=== PATIENT | female | born 1990 | race Caucasian/White ===

== ENCOUNTER 2018-11-24 22:16 | Inpatient (IN) | payer OTHER ==
[~2018-11-24] VITALS: Ht 162.6 cm; Wt 91.6 kg
[2018-11-24] MEDS ORDERED: FAMOTIDINE(*) 20MG/50ML PREMIX 50 ML IVPB PRN (22:19)
[2018-11-24] MEDS ORDERED: ceFAZolin(*) 2GM/D5W 50ML 50 ML IVPB PRN (22:19)
[2018-11-24] MEDS ORDERED: OXYTOCIN 30 UNIT/D5LR 500 ML 500 ML IV PRN (22:19)
[2018-11-24] MEDS ORDERED: METOCLOPRAMIDE 10 MG/2 ML SDV IVP PRN (22:20)
[2018-11-24] MEDS ORDERED: LIDOCAINE 1% LOCAL 300 MG/30ML INJ PRN (22:20)
[2018-11-24] MEDS ORDERED: LIDOCAINE/SOD BICARB 8.4% SYR SC PRN (22:20)
[2018-11-24] MEDS ORDERED: PENICILLIN G 5 MILLUN/100 ML 100 ML IVPB ONE (22:20)
[2018-11-24] MEDS ORDERED: fentaNYL CITR 100 MCG/2 ML AMP IVP PRN (22:20)
[2018-11-24] MEDS ORDERED: TERBUTALINE SULF 1 MG/ML VIAL SUBQ PRN (23:25)
[2018-11-24] MEDS ORDERED: MISOPROSTOL 25 MCG CAP PO ONE (23:25)
[2018-11-24] MEDS: LR(*) 1000 ML BAG 1,000 ML IV SCH (23:45)
[2018-11-24 23:54] LABS: PLATELET COUNT, AUTOMATED 135 K/uL (150-450)
[2018-11-25] MEDS ORDERED: PENICILLIN G 2.5 MILLUN/100 ML 100 ML IVPB SCH (03:00)
[2018-11-25] MEDS: LR(*) 1000 ML BAG 1,000 ML IV SCH ×2 (03:19→08:45)
[2018-11-25] MEDS ORDERED: BUPIVACAINE 0.25% MPF INJ EPI PRN (03:45)
[2018-11-25] MEDS ORDERED: LIDOCAINE/PF 2% 200MG/10ML AMP 200 MG/10 ML AMPUL EPI PRN (03:45)
[2018-11-25] MEDS ORDERED: LIDO/EPI 2% MPF 1:200,000 20ML EPI PRN (03:45)
[2018-11-25] MEDS ORDERED: FENTANYL/ROPIVACAINE 100 ML BAG EPI PRN (03:45)
[2018-11-25] MEDS ORDERED: fentaNYL CITR 100 MCG/2 ML AMP IT PRN (03:45)
[2018-11-25] MEDS ORDERED: ONDANSETRON 4 MG/2 ML VIAL IVP PRN (03:45)
[2018-11-25] MEDS ORDERED: NALOXONE HCL 0.4 MG/ML VIAL IV PRN (03:45)
[2018-11-25] MEDS ORDERED: BUPIVACAINE 0.5% INJ 30ML VIAL EPI PRN (03:45)
[2018-11-25 03:50] VITALS: BP 126/67; Ht 162.6 cm; Wt 91.6 kg
[2018-11-25] MEDS ORDERED: OXYTOCIN 30 UNIT/D5LR 500 ML 500 ML IV PRN (04:00)
[2018-11-25] MEDS ORDERED: ePHEDrine 25 MG/5 ML DISP.SYR IVP ONE ×2 (04:02→06:25)
[2018-11-25] MEDS: PENICILLIN G 2.5 MILLUN/100 ML 100 ML IVPB SCH ×2 (04:12→07:44)
[2018-11-25] MEDS ORDERED: EPIDURAL KEYS XX PRN (04:45)
--- NOTE | 2018-11-25 05:22 | Anesthesia OB Pre-Anes Eval ---
History of Present Illness Anesthesia Start Date: Nov 25, 2018 Anesthesia Start Time: 04:12 OB Anesthesia Diagnosis: spontaneous labor EDC: Dec 06, 2018 : 1 Para: 0 Pain Ratin Result Diagram: 11/24/18 5715 Height (Inches): 64.00 Weight (Pounds): 202 Past Medical History Medical History: alcohol use/abuse (occasional drinker. not during ), other (anxiety) Surgical History: other (wisdom teeth) Previous Anesthesia: other Hx Anesthesia Reactions: No Hx Family Anesthesia Reaction: No Allergies: Coded Allergies: No Known Drug Allergies (Unverified , 11/24/18) Anesthesia OB ROS Neurological: No migraines/headaches, No seizures, No neuropathy, No other ENT: Denies Tooth caps, Denies Loose teeth, Denies Chipped teeth, Denies Dentures, Denies Bridges, Denies Retainers, Denies Veneers, Denies Implants, Denies Tongue ring, Denies Other Pulmonary: No asthma, No smoker (pks/day/yrs), No other Airway Class: ll Cardiovascular ROS: No edema, No arrhythmia, No other GI ROS: clear liquids, ice chips Last Solids Date: Nov 24, 2018 Last Solids Time: 18:00 ROS: No Herpes, No STD(s), No Liver Disease, No Renal Disease, No Other Endocrine ROS: No diabetes, No gestational diabetes, No thyroid disorder, No other Musculoskeletal ROS: No low back pain, No low back injury, No scoliosis, No other ASA Classification: 2 Assessment and Plan Anesthesia Plan: LEB Assessment No contraindications for anesthesia/epidural GERALDINE MCDONOUGH CRNA Nov 25, 2018 05:22
--- NOTE | 2018-11-25 05:25 | Procedure Note ---
Anesthetic Placement Note Anesthesia Plan: LEB Permit for Anesthesia Signed: Yes Anesthesia Technique: Patient Sitting Anesthesia Prep: Chlorhexidine Interspace: L 3-4 Local Anesthetic: 1% Lidocaine, 25 Gauge Needle Amount Local - cc's: 2 Anesthesia Needle: 17g Touhy/Schliff Anesthesia Attempts: 1 Loss of Resistance: Normal Saline Epidural Needle Placement: No CSF, No Blood, No Parasthesia Cerebral Spinal Fluid: No Catheter Insertion (cm): 11 Catheter Type: Box - Spring Wound Epidural Dressing: Tegaderm, Tape Anesthesia Tray: Lot Number ([id number]), Expiration Date (05/26/2020) Anesthesia Medications: Epidural Test Dose: 1.5 Lido/Epi (1:200,000), Dose - mL (4), Time (0450), Negative Epidural Infusion: 0.2% Ropivicaine, With Fentanyl 2mcg/ml, Start Time: (0503) Epidural Pump Setting: Bolus Dose - mL (4), Lockout - Minutes (20), Maintenance Rate - mL/hr (8), Maximum per Hour - mL (8) Complications: None GERALDINE MCDONOUGH CRNA Nov 25, 2018 05:25
[2018-11-25] MEDS ORDERED: ePHEDrine 25 MG/5 ML DISP.SYR IVP PRN (06:50)
--- NOTE | 2018-11-25 09:23 | History & Physical ---
History of Present Illness Age of Patient: 28 : 1 Para or TPAL: 0 EDC per LMP: Dec 06, 2018 Estimated Gestational Age: 38.3 Chief Complaint Labor History of Present Illness Eliza presents with SROM of unknown duration and regular painful contractions. has been uncomplicated. She is healthy with no medical issues. Past Medical, Surgical, Family and Obstetric Histories reviewed. Please see ACOG chart. History Allergies: Coded Allergies: No Known Drug Allergies (Unverified , 11/24/18) Review of Systems All Systems Reviewed/Normal: Yes, Except as Noted Exam General Exam Vital Signs Vital Signs Date Time Temp Pulse Resp B/P (MAP) Pulse Ox O2 Delivery O2 Flow Rate FiO2 11/25/18 03:50 98.6 93 18 126/67 (86) 94 Room Air General Apperance: Alert/Awake/No Acute Distress Neuro: No Gross deficits Eyes: Normal Extraocular Movement & Vison Cardiovascular: Regular Rate and Rhythm Respiratory: No Respiratory Distress Abdomen: Soft, Non-Tender, Non-Distended, Gravid - Non-Tender Integumentary: Skin Intact without Lesions or Rash Psychological: Alert & Oriented X3, Appropriate Mood & Affect Cervical Dialation: 10 Cervical Effacement (%): 100 Cervical Consistency: Soft Cervical Position: Anterior Fetus Heart Tone Variabilty: Moderate FHT Accelerations: 15X15 FHT Category: I Medical Decision Making Data Points Result Diagram: 11/24/18 4349 VTE Prophylasis: Adult Deep Vein Thrombosis/Pulmonary: No Pharmacological Contraindicati: Pt at Low Risk for VTE Mechanical Contraindications: Pt at Low Risk for VTE Assessment and Plan BIOLOGY LECTURER Plan: Routine Labor Care Problems: (1) 38 weeks gestation of Assessment & Plan: Expecting soon. SULTANA COREA MD Nov 25, 2018 09:23
[2018-11-25] MEDS ORDERED: ACETAMINOPHEN 325 MG TAB PO PRN (10:30)
[2018-11-25] MEDS ORDERED: HYDROCORTISONE 2.5% CR 30GM TB PR PRN (10:30)
[2018-11-25] MEDS ORDERED: APAP/HYDROCODONE 325/5 TAB PO PRN (10:30)
[2018-11-25] MEDS ORDERED: MAGNESIUM HYDROXIDE* 30ML UDCP PO PRN (10:30)
[2018-11-25] MEDS ORDERED: LANOLIN OINT 7 GM TUBE TP PRN (10:30)
[2018-11-25] MEDS ORDERED: BENZOCAINE 20% 60 ML BTL TP PRN (10:30)
[2018-11-25] MEDS ORDERED: GLYCERIN/WITCH HAZEL LEAF 1 PK TP PRN (10:30)
--- NOTE | 2018-11-25 10:47 | OB Delivery Note ---
Delivery Note Vaginal Delivery Type: Spont. Vaginal Delivery Delivery Date: Nov 25, 2018 Delivery Time: 10:07 Estimated Gestational Age(wks): 38.3 Delivery Anesthesia: Epidural Sex: Female Infant Weight (gms): 3246 Apgars: 1 Minute (8), 5 Minute (9) Repair Needed: Episiotomy-Midline, 2nd Degree Estimated Blood Loss: 300 Delivery Complications: Nuchal Cord (x1) Notes: Presented in active labor and with SROM. She was 2 cm on admission and slowly changed to 3 cm by 0210. Epidural placed at 0342. She persisted at 3 cm till after 0530 when went to 9cm. Completely dilated at 0800 and labored down. Eff ective second stage labor but variable decelerations noted with contractions and so second degree episiotomy performed. Delivery over second degree laceration without extension. Placenta delivered spontaneous and intact. Repair with 2-0 chromic without complication. Real Estate Site Analyst in Attendence: No Copies to: SULTANA COREA MD ; SULTANA COREA MD Nov 25, 2018 10:47
[2018-11-25] MEDS: IBUPROFEN 800 MG TAB PO SCH ×2 (11:51→20:33)
--- NOTE | 2018-11-25 12:23 | Anesthesia Progress Note ---
Assessment and Plan Anesthesia Plan: MARIA ANTONIA Anesthesia Stop Day: Nov 25, 2018 Anesthesia Stop Time: 10:30 Epidural Catheter Removal: Removed Catheter Intact, Yes, Removed by: (Vonnie CARLTON) Removal Date: Nov 25, 2018 JU LORENZANA CRNA Nov 25, 2018 12:23
[2018-11-25 12:49] VITALS: BP 123/80
[2018-11-25 13:25] VITALS: BP 108/58
[2018-11-25] MEDS ORDERED: PREN1TAB44 PO (13:47)
--- NOTE | 2018-11-25 14:31 | DELIVERY NOTE ---
DELIVERY DATE: November 25, 2018 DELIVERY TIME: 1007 SURGEON: Alber Hopkins MD ANESTHESIA: Epidural. PREDELIVERY DIAGNOSIS A 38-week intrauterine . POSTDELIVERY DIAGNOSIS A 38-week intrauterine . PROCEDURES PERFORMED 1. Normal spontaneous vaginal delivery. 2. Second-degree midline episiotomy. ESTIMATED BLOOD LOSS 300 mL COMPLICATIONS None. FINDINGS Female infant, cephalic, left occiput anterior position, Apgars 8 and 9. Placenta spontaneous and intact. Second-degree midline episiotomy without extension. PROCEDURE Patient was admitted to Labor and Delivery with active labor and spontaneously ruptured membranes at approximately 2200 the same night of her admission. She was 2 cm on admission and was having regular painful contractions, slowly changed to 3 cm by 2 a.m., epidural placed at 3:42 a.m., and after 5:30 a.m., she went to 9 cm. By 0800, she was completely dilated and allowed to labor down. She had an effective second stage of labor, bringing the to a presentation, but variable deep decelerations were noted with each contraction, and so a second-degree midline episiotomy was performed to expedite delivery with delivery over a second-degree laceration without extension in the left occiput anterior position. There was a nuchal cord times one which was easily reduced. Shoulders delivered spontaneously, and the remainder of the followed. Mouth and nose were bulb suctioned. was placed on the maternal abdomen for attention by the resuscitation team. Cord was clamped and cut. The placenta delivered spontaneously. The uterus was massaged firm. The midline episiotomy was repaired with 2-0 chromic in the usual fashion for a second-degree obstetrical repair. This was performed without complication with an excellent result. She was cleaned up and returned to bed in stable condition. [facility]
[2018-11-25 16:28] VITALS: BP 118/71
[2018-11-25 20:30] VITALS: BP 123/78
[2018-11-25] MEDS: DOCUSATE CALCIUM 240 MG CAP PO SCH (20:33)
[2018-11-25 23:30] VITALS: BP 116/67
[2018-11-26 03:30] VITALS: BP 107/78
[2018-11-26] MEDS: IBUPROFEN 800 MG TAB PO SCH ×2 (03:36→11:29)
[2018-11-26] MEDS: DOCUSATE CALCIUM 240 MG CAP PO SCH (09:00)
--- NOTE | 2018-11-26 10:46 | OB/GYN Progress Note ---
OB Subjective Progress Notes Subjective Doing well. Pain well controlled and normal lochia. Pain in episiotomy site but tolerable. Voiding well. GI: NEG Nausea : Voiding Well Pain: Mild OB Objective Physical Exam Vital Signs Date Time Temp Pulse Resp B/P (MAP) Pulse Ox O2 Delivery O2 Flow Rate FiO2 11/26/18 03:30 97.0 81 16 107/78 (88) 94 Room Air Intake and Output 11/26/18 07:00 Intake Total 120 ml Output Total 1475 ml Balance -1355 ml Intake Oral 120 ml Output Urine Total 1475 ml # Voids 1 General Appearance: Alert/Awake/No Acute Distress Neurological: No Gross deficits Eyes: Normal Extraocular Movement & Vison Cardiovascular: Normal Rhythm & Peripheral Pulses, Regular Rate and Rhythm Respiratory: No Respiratory Distress, Clear to Auscultation Abdomen: Soft, Non-Tender, Non-Distended, Fundus Firm, Non-Tender Integumentary: Skin Intact without Lesions or Rash Psychological: Alert & Oriented X3, Appropriate Mood & Affect Result Diagram: 11/26/18 0602 Assessment and Plan SOUND PRINTER Plan: Routine Post- Care, Discharge Home Today Problems: (1) 38 weeks gestation of (2) care and examination immediately after delivery Assessment & Plan: Home today. F/U at 6 weeks. Reviewed discharge instructions and precautions. Call with problems. SULTANA COREA MD Nov 26, 2018 10:46
[2018-11-26] MEDS ORDERED: IBUP800T37 PO (10:49)
[2018-11-26] MEDS ORDERED: LOR5/325 PO (10:49)
--- NOTE | 2018-11-26 10:51 | OB/GYN Discharge Summary ---
Discharge Summary Reason for Hosp/Final Diag: (1) 38 weeks gestation of (2) care and examination immediately after delivery Hospital Course & Plan: Home today. F/U at 6 weeks. Reviewed discharge instructions and precautions. Call with problems. Lates Vital Signs Vital Signs Date Time Temp Pulse Resp B/P (MAP) Pulse Ox O2 Delivery O2 Flow Rate FiO2 11/26/18 03:30 97.0 81 16 107/78 (88) 94 Room Air Weight (Pounds): 202 Result Diagram: 11/26/18 0602 Condition: Improved Discharge: Home, Self Assisted Meds Active Scripts Hydrocodone Bit/Acetaminophen (HYDROCODON-ACETAMINOPHEN 5-325) 1 Each Tablet, 1- 2 EACH PO Q4H PRN for PAIN, #10 TAB 0 Refills Prov:SULTANA HOPKINS MD 11/26/18 Reported Medications Vit No.124/Iron/FA ( Vitamin Tablet) 1 Each Tablet, 1 TAB PO DAILY 11/25/18 Follow up Referrals: LAG SCREWER - In 6 Weeks @ [facility] with SULTANA HOPKINS MD Follow up with: Dr. Hopkins [phone] Follow up in: 6 wks PP or PO Discharge Diet: As Tolerates Discharge Activity: As Tolerates, No Heavy Lifting x 6 wks, No Heavy Lifting > 10lb, Pelvic Rest Special Instructions: Copies to: SULTANA HOPKINS MD ; SULTANA HOPKINS MD Nov 26, 2018 10:51
--- NOTE | 2018-11-26 14:33 | Anesthesia Post Eval Note ---
Anesthesia Post Eval Note Vital Signs 11/26/18 03:30 Temp 97.0 Pulse 81 Resp 16 B/P (MAP) 107/78 (88) Pulse Ox 94 O2 Delivery Room Air Pt able to participate in Eval: Yes Cardiovascular Status: Satisfactory Respiratory Status: Satisfactory Pain Managment: Satisfactory PO Nausea/Vomiting: Satisfactory Temperature Management: Satisfactory Mental Status: Satisfactory, Alert, Oriented X3 Post-Op Hydration Status: Satisfactory, Tolerating PO Well, Voiding w/o Difficulty Anesthesia Type: JU PETTY CRNA Nov 26, 2018 14:33
[2018-11-27] MEDS ORDERED: INFLUENZA VIRUS VAC 0.5ML SYR IM ONLY ONE (09:00)
[2018-11-27] MEDS ORDERED: MEASLES,MUMP,RUBELLA VAC 0.5ML SUBQ ONE (09:00)
[2018-11-27] MEDS ORDERED: DIPHTH/TETANUS/ACEL. PERTUSSIS IM ONLY ONE (09:00)
== END 2018-11-26 12:15 | disposition home or self-care (01) | DRG 807 ==
LOC: OB 22:16
PROVIDERS: ADMIT Obstetrics & Gynecology; ATTEND Obstetrics & Gynecology
PROC: 10E0XZZ Delivery of Products of Conception, External Approach (ICD-10-PCS; principal; 2018-11-25)
PROC: 0W8NXZZ Division of Female Perineum, External Approach (ICD-10-PCS; 2018-11-25)
DX: O99.824 Streptococcus B carrier state complicating childbirth (principal); Z37.0 Single live birth; O69.81X0 Labor and delivery complicated by cord around neck, without compression, not applicable or unspecified; O76 Abnormality in fetal heart rate and rhythm complicating labor and delivery; Z3A.38 38 weeks gestation of pregnancy
CPT/HCPCS: 36415; 84112; 85025; 85027; 86850; 86900; 86901; J2540; J3010; J7120

== ENCOUNTER → 2018-11-24 | Outpatient (REF) | payer OTHER ==
[~2018-11-24] MED LIST: IBUP800T37 PO; LOR5/325 PO; PREN1TAB44 PO
== END ==
LOC: ZZSENDIN 14:34
PROVIDERS: ATTEND Physician Assistant
DX: N89.8 Other specified noninflammatory disorders of vagina (principal)
CPT/HCPCS: 84112